=== PATIENT | male | born 1950 | race Two or more races ===

== ENCOUNTER 2017-11-06 05:45 | Inpatient (IN) | payer OTHER ==
[2017-11-05 08:41] LABS: MICROSCOPIC NOT IND
[2017-11-05 08:42] LABS: CULTURE INDICATED? NO
[2017-11-05 08:48] LABS: INTERNATIONAL NORMALIZED RATIO 1.02 (0.93-1.1); PROTHROMBIN TIME 10.6 Seconds (9.6-11.5)
[2017-11-05 08:53] LABS: ALBUMIN 3.1 g/dL (3.4-5.0); ANION GAP 7 mmol/L (5-15); CALCIUM 8.5 mg/dL (8.5-10.1); CHLORIDE 108 mmol/L (98-107)
[2017-11-05 08:56] LABS: ALANINE AMINOTRANSFERASE 25 U/L (12-78); ALKALINE PHOSPHATASE 131 U/L (45-117); BILIRUBIN,TOTAL 0.5 mg/dL (0.2-1.0); CREATININE 1.16 mg/dL (0.7-1.3); TOTAL PROTEIN 6.8 g/dL (6.4-8.2)
[2017-11-05 09:19] LABS: MD YES; MEAN CORPUSCULAR HEMOGLOBIN 26.8 pg (27.5-34.5); MEAN CORPUSCULAR HGB CONC 32.1 g/dL (33.2-36.2); MEAN CORPUSCULAR VOLUME 83.4 fL (81-97); PLATELET COUNT 90 x10^3/uL (130-400); RED BLOOD COUNT 3.14 x10^6/uL (4.38-5.82); RED CELL DISTRIBUTION WIDTH 17.9 % (9.4-14.8)
[2017-11-05 09:25] LABS: BAND#(MANUAL) 0.02 x10^3/uL; BANDS%(MANUAL) 1 % (0-7); EOS#(MANUAL) 0.02 x10^3/uL (0.0-0.4); EOS% (MANUAL) 1 % (1-7); LYMPH#(MANUAL) 0.53 x10^3/uL (1-3.4); LYMPHS% (MANUAL) 23 % (22-44); MONOS#(MANUAL) 0.18 x10^3/uL (0.3-2.7); MONOS% (MANUAL) 8 % (2-9); SEG#(MANUAL) 1.54 x10^3/uL (1.8-6.8); SEGS% (MANUAL) 67 % (42-75)
[2017-11-05 09:26] LABS: <PLATELET ESTIMATE> DECREASED; <PLT MORPHOLOGY> NORMAL PLT MORPH; ANISOCYTOSIS 1+
[2017-11-05 09:27] LABS: HYPOCHROMIA 1+
[~2017-11-06] VITALS: Ht 175.3 cm; Wt 113.5 kg
[~2017-11-06 05:45] MED LIST: CARV25TA12 PO; DULO30CA2 PO; GLIP-142 PO; HYDR-3245 PO; LISI-170 PO; METF1000 PO; PIOG30TA4 PO; ROPI1TAB2 PO
[2017-11-06] MEDS ORDERED: BUPIVACAINE/PF 0.5% ONE (06:15)
[2017-11-06] MEDS ORDERED: BUPIVACAINE 0.25% ONE (06:15)
[2017-11-06] MEDS ORDERED: THROMBIN 5,000 UNIT VIAL TP ONE (06:16)
[2017-11-06] MEDS ORDERED: VANCOMYCIN 1,000 MG ONE (06:16)
[2017-11-06] MEDS ORDERED: BACITRACIN 50,000 UNIT ONE (06:16)
[2017-11-06] MEDS ORDERED: LACTATED RINGERS 1,000 ML IV SCH (06:18)
[2017-11-06 06:25] VITALS: BP 139/82
[2017-11-06] MEDS ORDERED: FENTANYL PF 250 MCG/5ML ONE (06:28)
[2017-11-06] MEDS ORDERED: MIDAZOLAM 1 MG/ML, 2ML ONE (06:28)
[2017-11-06] MEDS ORDERED: PROPOFOL 10 MG/ML, 20ML ONE (06:29)
[2017-11-06] MEDS ORDERED: ROCURONIUM 10MG/ML,5ML ONE (06:29)
[2017-11-06] MEDS ORDERED: PROPOFOL 100 ML ONE (06:30)
[2017-11-06] MEDS ORDERED: ONDANSETRON ODT 8 MG PO ONE (07:00)
[2017-11-06] MEDS ORDERED: GABAPENTIN 300 MG CAPSULE PO ONE (07:00)
[2017-11-06] MEDS ORDERED: FAMOTIDINE 20 MG TABLET PO ONE (07:00)
[2017-11-06] MEDS ORDERED: DEXAMETHASONE 4 MG/ML, 1ML ONE ×2 (07:12)
[2017-11-06] MEDS ORDERED: CEFAZOLIN 1,000 MG ONE (07:15)
[2017-11-06] MEDS: CEFAZOLIN PMX 1GM/50ML 50 ML IVPB SCH ×2 (07:15→15:13)
[2017-11-06] MEDS ORDERED: OXYcodone 5 MG/5 ML ORAL.SOL UDC PO PRN (07:30)
[2017-11-06] MEDS ORDERED: PROMETHAZINE 12.5 MG SUPP PR PRN (07:30)
[2017-11-06] MEDS ORDERED: ALBUTEROL/IPRATROPIUM 2.5MG/0.5MG, 3 ML NPPB PRN (07:30)
[2017-11-06] MEDS ORDERED: hydrALAzine 20 MG/ML, 1ML IV PRN (07:30)
[2017-11-06] MEDS ORDERED: MORPHINE SULFATE 4 MG/ML, 1ML IV PRN (07:30)
[2017-11-06] MEDS ORDERED: ALBUTEROL SULFATE 2.5 MG/3 ML NPPB PRN (07:30)
[2017-11-06] MEDS ORDERED: FENTANYL PF 100 MCG/2ML IV PRN (07:30)
[2017-11-06] MEDS ORDERED: LABETALOL 5MG/ML, 20ML IV PRN (07:30)
[2017-11-06] MEDS ORDERED: MEPERIDINE/PF 25MG/0.5ML IV PRN (07:30)
[2017-11-06] MEDS ORDERED: ONDANSETRON 2MG/ML, 2ML IVPush PRN ×2 (07:30→09:00)
[2017-11-06] MEDS ORDERED: BUPIVACAINE/PF 0.5% INFIL ONE (07:40)
[2017-11-06] MEDS ORDERED: EPINEPHRINE 1 MG/ML, 1ML INFIL ONE (07:41)
[2017-11-06] MEDS ORDERED: FENTANYL PF 100 MCG/2ML ONE (08:46)
[2017-11-06] MEDS ORDERED: HYDROmorphone 2 MG/ML, 1ML ONE (08:55)
[2017-11-06] MEDS: HYDROmorphone 2 MG/ML, 1ML IV PRN ×3 (08:57→09:30)
[2017-11-06] MEDS ORDERED: MAGNESIUM HYDROXIDE 8%, 30ML UDC PO PRN (09:00)
[2017-11-06] MEDS ORDERED: DIPHENHYDRAMINE 50 MG/ML, 1ML IVPush PRN (09:00)
[2017-11-06] MEDS: SODIUM CHLORIDE FLUSH 10ML SYR IVF SCH ×2 (09:00→20:54)
[2017-11-06] MEDS ORDERED: morphine SULFATE 10 MG/ML, 1ML IVPush PRN (09:00)
[2017-11-06] MEDS ORDERED: PIOGLITAZONE HCL 30 MG PO SCH (09:00)
[2017-11-06] MEDS ORDERED: SENNA/DOCUSATE TABLET PO PRN (09:00)
[2017-11-06] MEDS ORDERED: TEMPLATE NON-FORMULARY MED. (Metformin Hcl** (Glucophage**) 1,000 MG) PO SCH (09:00)
[2017-11-06] MEDS: LABETALOL 5MG/ML 40ML VIAL IVPush SCH ×2 (09:00→17:00)
[2017-11-06] MEDS ORDERED: PROMETHAZINE 25 MG/ML, 1ML IM PRN (09:00)
[2017-11-06] MEDS ORDERED: BISACODYL 10 MG SUPP PR PRN (09:00)
[2017-11-06] MEDS ORDERED: OXYcodone/APAP 5/325MG TABLET PO PRN (09:00)
[2017-11-06] MEDS ORDERED: PHARMACY MAY ADJ FOR RENAL FX MC PRN (09:00)
[2017-11-06] MEDS ORDERED: DIPHENHYDRAMINE 50 MG CAPSULE PO PRN (09:00)
[2017-11-06] MEDS ORDERED: TEMPLATE NON-FORMULARY MED. (Glipizide** (Glipizide Xl**) 10 MG) PO SCH (09:00)
[2017-11-06] MEDS ORDERED: HYDROcodone/APAP 5/325 TABLET ONE (10:50)
[2017-11-06] MEDS: HYDROcodone/APAP 5/325 TABLET PO PRN ×4 (10:52→22:35)
[2017-11-06] MEDS: INSULIN REGULAR 100 UNITS/ML, 3ML VIAL SQ-INSULIN PRN ×3 (12:03→20:58)
[2017-11-06] MEDS ORDERED: METHOCARBAMOL 500 MG TABLET ONE (12:30)
[2017-11-06] MEDS: METHOCARBAMOL 750 MG TABLET PO PRN (12:32)
[2017-11-06 12:57] VITALS: BP 153/90
[2017-11-06] MEDS: NS + 20MEQ KCL 1,000 ML IV SCH (15:11)
[2017-11-06] MEDS ORDERED: EPINEPHRINE 1 MG/ML, 1ML ONE (16:23)
[2017-11-06 19:29] VITALS: BP 136/59
[2017-11-06 19:36] VITALS: BP 144/73
[2017-11-06] MEDS: metFORMIN 500 MG TABLET PO SCH (20:54)
[2017-11-07] MEDS: LABETALOL 5MG/ML 40ML VIAL IVPush SCH ×3 (01:00→16:51)
[2017-11-07] MEDS ORDERED: LABETALOL 5MG/ML, 20ML ONE (01:38)
[2017-11-07] MEDS: METHOCARBAMOL 750 MG TABLET PO PRN ×3 (01:41→17:38)
[2017-11-07 01:57] VITALS: BP 115/60
[2017-11-07] MEDS: NS + 20MEQ KCL 1,000 ML IV SCH ×2 (04:12→17:39)
[2017-11-07] MEDS: HYDROcodone/APAP 5/325 TABLET PO PRN ×5 (04:14→20:53)
[2017-11-07 05:02] LABS: MEAN CORPUSCULAR HEMOGLOBIN 27.4 pg (27.5-34.5); MEAN CORPUSCULAR HGB CONC 32.6 g/dL (33.2-36.2); MEAN CORPUSCULAR VOLUME 84.1 fL (81-97); RED BLOOD COUNT 2.87 x10^6/uL (4.38-5.82); RED CELL DISTRIBUTION WIDTH 18.4 % (9.4-14.8)
[2017-11-07 05:06] LABS: ANION GAP 6 mmol/L (5-15); CALCIUM 8.2 mg/dL (8.5-10.1); CHLORIDE 108 mmol/L (98-107); CREATININE 1.21 mg/dL (0.7-1.3)
[2017-11-07 06:04] LABS: BASOPHILS # (AUTO) 0.01 x10^3/uL (0-0.1); BASOPHILS % (AUTO) 0 % (0-1); EOSINOPHILS % (AUTO) 0 % (1-7); LYMPHOCYTES # (AUTO) 0.53 x10^3/uL (1-3.4); LYMPHOCYTES % (AUTO) 10 % (22-44); MD SCAN; MEAN PLATELET VOLUME 8.1 fL (7.4-10.4); MONOCYTES # (AUTO) 0.46 x10^3/uL (0.2-0.8); MONOCYTES % (AUTO) 9 % (2-9); NEUTROPHILS # (AUTO) 4.22 x10^3/uL (1.8-6.8); NEUTROPHILS % (AUTO) 81 % (42-75); PLATELET COUNT 80 x10^3/uL (130-400)
[2017-11-07] MEDS: ENOXAPARIN 40 MG/0.4 ML SQ SCH (06:11)
[2017-11-07 07:35] VITALS: BP 155/83
[2017-11-07] MEDS: PIOGLITAZONE 15 MG TABLET PO SCH (07:39)
[2017-11-07] MEDS: metFORMIN 500 MG TABLET PO SCH ×2 (07:39→20:47)
[2017-11-07] MEDS: DULOXETINE 30 MG CAPSULE.DR PO SCH (07:40)
[2017-11-07] MEDS: CARVEDILOL 25 MG TABLET PO SCH ×2 (07:40→20:47)
[2017-11-07] MEDS: GLIPizide ER 5 MG TABLET PO SCH (07:40)
[2017-11-07] MEDS: ROPINIROLE 1MG TABLET PO SCH ×4 (07:40→20:48)
[2017-11-07] MEDS: SODIUM CHLORIDE FLUSH 10ML SYR IVF SCH ×2 (07:40→20:48)
[2017-11-07] MEDS: LISINOPRIL 20 MG TABLET PO SCH (07:40)
[2017-11-07] MEDS: KETOROLAC 30 MG/1 ML IV SCH ×2 (09:46→17:38)
[2017-11-07 15:28] VITALS: BP 149/80
[2017-11-07 18:49] VITALS: BP 140/70
[2017-11-08 00:58] VITALS: BP 116/61
[2017-11-08] MEDS: LABETALOL 5MG/ML 40ML VIAL IVPush SCH ×2 (00:59→09:00)
[2017-11-08] MEDS: KETOROLAC 30 MG/1 ML IV SCH ×2 (00:59→09:21)
[2017-11-08] MEDS: HYDROcodone/APAP 5/325 TABLET PO PRN ×3 (02:27→12:29)
[2017-11-08 06:04] LABS: ANION GAP 6 mmol/L (5-15); CHLORIDE 107 mmol/L (98-107)
[2017-11-08 06:07] LABS: CREATININE 1.19 mg/dL (0.7-1.3)
[2017-11-08] MEDS: ENOXAPARIN 40 MG/0.4 ML SQ SCH (06:14)
[2017-11-08 06:17] LABS: MEAN CORPUSCULAR HEMOGLOBIN 26.7 pg (27.5-34.5); MEAN CORPUSCULAR HGB CONC 31.9 g/dL (33.2-36.2); MEAN CORPUSCULAR VOLUME 83.6 fL (81-97); PLATELET COUNT 77 x10^3/uL (130-400)
[2017-11-08 06:36] VITALS: BP 135/80
[2017-11-08] MEDS: NS + 20MEQ KCL 1,000 ML IV SCH (07:10)
[2017-11-08 07:14] LABS: BASOPHILS # (AUTO) 0.01 x10^3/uL (0-0.1); BASOPHILS % (AUTO) 0 % (0-1); EOSINOPHILS # (AUTO) 0.02 x10^3/uL (0-0.4); EOSINOPHILS % (AUTO) 1 % (1-7); LYMPHOCYTES # (AUTO) 0.65 x10^3/uL (1-3.4); LYMPHOCYTES % (AUTO) 24 % (22-44); MD SCAN; MONOCYTES # (AUTO) 0.29 x10^3/uL (0.2-0.8); MONOCYTES % (AUTO) 11 % (2-9); NEUTROPHILS # (AUTO) 1.73 x10^3/uL (1.8-6.8); NEUTROPHILS % (AUTO) 64 % (42-75)
[2017-11-08 08:38] VITALS: BP 148/75
[2017-11-08 08:56] VITALS: BP 143/74
[2017-11-08] MEDS: ROPINIROLE 1MG TABLET PO SCH (09:00)
[2017-11-08] MEDS: CARVEDILOL 25 MG TABLET PO SCH (09:19)
[2017-11-08] MEDS: PIOGLITAZONE 15 MG TABLET PO SCH (09:20)
[2017-11-08] MEDS: LISINOPRIL 20 MG TABLET PO SCH (09:20)
[2017-11-08] MEDS: SODIUM CHLORIDE FLUSH 10ML SYR IVF SCH (09:20)
[2017-11-08] MEDS: DULOXETINE 30 MG CAPSULE.DR PO SCH (09:21)
[2017-11-08] MEDS: GLIPizide ER 5 MG TABLET PO SCH (09:21)
[2017-11-08] MEDS: metFORMIN 500 MG TABLET PO SCH (09:21)
[2017-11-08 11:37] VITALS: BP 149/83
[2017-11-08 13:06] VITALS: BP 127/64
[2017-11-08] MEDS ORDERED: HYDR-3240 PO (14:31)
[2017-11-08] MEDS ORDERED: METH750T87 PO (14:32)
== END 2017-11-08 15:30 | disposition home or self-care (01) | DRG 516 ==
LOC: OUT 05:45 → ORIP 08:44 → 4NOR 10:40
PROVIDERS: ADMIT Neurological Surgery; ATTEND Neurological Surgery
PROC: 01N80ZZ Release Thoracic Nerve, Open Approach (ICD-10-PCS; principal; 2017-11-06 07:00)
PROC: 30233N1 Transfusion of Nonautologous Red Blood Cells into Peripheral Vein, Percutaneous Approach (ICD-10-PCS; 2017-11-08)
DX: M48.04 Spinal stenosis, thoracic region (principal); G95.9 Disease of spinal cord, unspecified; D61.818 Other pancytopenia; E66.01 Morbid (severe) obesity due to excess calories; E11.9 Type 2 diabetes mellitus without complications; G56.03 Carpal tunnel syndrome, bilateral upper limbs; D75.9 Disease of blood and blood-forming organs, unspecified; G89.4 Chronic pain syndrome; Z96.653 Presence of artificial knee joint, bilateral; M25.561 Pain in right knee; M25.562 Pain in left knee; M19.90 Unspecified osteoarthritis, unspecified site; M51.34 Other intervertebral disc degeneration, thoracic region; I10 Essential (primary) hypertension; Z92.21 Personal history of antineoplastic chemotherapy; Z85.038 Personal history of other malignant neoplasm of large intestine; Z82.49 Family history of ischemic heart disease and other diseases of the circulatory system; Z83.3 Family history of diabetes mellitus; Z88.8 Allergy status to other drugs, medicaments and biological substances; Z68.37 Body mass index [BMI] 37.0-37.9, adult
CPT/HCPCS: 36415; 71046; 72072; 72128; 80048; 80053; 81003; 82962; 85014; 85018; 85025; 85610; 85730; 86850; 86900; 86923; 93005; C1729; J0171; J0690; J1100; J1170; J1650; J1815; J1885; J2250; J2704; J3010; J3370; J3480; J3490; Q0162; J7120; P9016

== ENCOUNTER → 2018-01-19 | Outpatient (CLI) | payer OTHER ==
[~2018-01-19] MED LIST changes: +GABA300C10 PO; +HYDR-3240 PO; +METH750T87 PO
== END | disposition home or self-care (01) ==
LOC: CFH 09:50
PROVIDERS: ATTEND Specialist
DX: K76.0 Fatty (change of) liver, not elsewhere classified (principal); K80.20 Calculus of gallbladder without cholecystitis without obstruction; K83.8 Other specified diseases of biliary tract; R16.1 Splenomegaly, not elsewhere classified; D64.9 Anemia, unspecified; D61.818 Other pancytopenia
CPT/HCPCS: 76700